=== PATIENT | female | born 1970 | race Caucasian/White ===

== ENCOUNTER 2019-09-15 20:10 | Emergency (ER) | payer MEDICAID ==
[~2019-09-15] VITALS: Ht 162.6 cm; Wt 90.9 kg
[~2019-09-15 20:10] MED LIST: CEPH500 PO; HYDR-309 PO
[2019-09-15] MEDS ORDERED: CEPHALEXIN MONOHYDRATE 500 MG CAPSULE PO ONE (23:00)
[2019-09-15] MEDS ORDERED: DOXYCYCLINE HYCLATE 100 MG CAPSULE PO ONE (23:00)
[2019-09-15 23:13] LABS: GLUCOMETER DEV NAME(LOC) AHU.; GLUCOSE,POINT OF CARE 96 MG/DL (70-110)
[2019-09-15 23:45] VITALS: BP 127/78
== END 2019-09-15 23:59 | disposition home or self-care (01) ==
LOC: EMS 20:11
DX: L03.116 Cellulitis of left lower limb (principal); Z90.89 Acquired absence of other organs

== ENCOUNTER 2019-12-17 11:36 | Emergency (ER) | payer SELFPAY ==
[~2019-12-17] VITALS: Ht 162.6 cm; Wt 90.9 kg
[2019-12-17 11:50] VITALS: BP 132/72
== END 2019-12-17 12:35 | disposition home or self-care (01) ==
LOC: EMS 11:40
DX: L98.9 Disorder of the skin and subcutaneous tissue, unspecified (principal); Z90.89 Acquired absence of other organs
CPT/HCPCS: Z7502

== ENCOUNTER 2020-10-11 12:00 | Emergency (ER) | payer MEDICAID ==
[~2020-10-11] VITALS: Ht 160 cm; Wt 90.0 kg
[2020-10-11] MEDS ORDERED: IBUPROFEN 400 MG TABLET PO ONE (13:30)
[2020-10-11 13:59] VITALS: BP 126/76
== END 2020-10-11 14:19 | disposition home or self-care (01) ==
LOC: EMS 12:06
DX: S63.501A Unspecified sprain of right wrist, initial encounter (principal); X58.XXXA Exposure to other specified factors, initial encounter; Y93.89 Activity, other specified; Y92.89 Other specified places as the place of occurrence of the external cause; Y99.8 Other external cause status
CPT/HCPCS: 99283